=== PATIENT | male | born 1965 | race Caucasian/White ===

== ENCOUNTER 2023-01-23 09:17 | Outpatient (CLI) | payer OTHER | END 2023-01-23 09:18 | disposition home or self-care (01) | LOC: CSHCT 09:17 | PROVIDERS: ATTEND Chiropractor | DX: M54.50 Low back pain, unspecified (principal); R10.819 Abdominal tenderness, unspecified site; K22.89 Other specified disease of esophagus; K76.0 Fatty (change of) liver, not elsewhere classified; N20.0 Calculus of kidney; M47.816 Spondylosis without myelopathy or radiculopathy, lumbar region | CPT/HCPCS: 72131; 74176 ==

== ENCOUNTER 2024-06-04 15:36 | Outpatient (CLI) | payer OTHER | END 2024-06-04 15:37 | disposition home or self-care (01) | LOC: CSHMRI 15:36 | PROVIDERS: ATTEND Orthopaedic Surgery | DX: M47.26 Other spondylosis with radiculopathy, lumbar region (principal); M16.11 Unilateral primary osteoarthritis, right hip; M48.061 Spinal stenosis, lumbar region without neurogenic claudication; M51.17 Intervertebral disc disorders with radiculopathy, lumbosacral region | CPT/HCPCS: 72100; 72148; 72190 ==